=== PATIENT | female | born 1975 | race Caucasian/White ===

== ENCOUNTER → 2023-09-20 11:12 | Outpatient (REF) | payer OTHER, SELFPAY | LOC: HWRAD 11:12 | PROVIDERS: ATTENDING PHYSICIAN Surgery; FAMILY PHYSICIAN Physician Assistant Medical | DX: N20.0 Calculus of kidney (principal) | CPT/HCPCS: 76775 ==

== ENCOUNTER → 2023-10-12 14:26 | Outpatient (REF) | payer OTHER, SELFPAY | LOC: HWWDC 14:26 | PROVIDERS: ATTENDING PHYSICIAN Physician Assistant Medical | DX: Z12.31 Encounter for screening mammogram for malignant neoplasm of breast (principal) | CPT/HCPCS: 77063; 77067 ==

== ENCOUNTER 2024-01-15 16:57 | Emergency (ER) | payer OTHER, SELFPAY ==
[2024-01-15 17:17] VITALS: BP 119/83
--- NOTE | 2024-01-15 17:18 | ED.GENMED ---
ED Provider Triage
<Digna Martinez SCRAP BREAKER - Last Filed: 01/15/24 17:23>
-
Patient seen by provider in Triage?: Seen in Triage
Attestation: A medical screening examination has been initiated by a qualified medical provider. Based on the assessment performed at this time, it has been determined that an emergent medical condition may exist and the patient has been informed
that further medical evaluation and possible additional diagnostic testing may be needed.
HPI: 48 yo female here for 'left side sciatica pain.' Started 2 weeks ago, has been seeing chiropractor with some relief then pain became worse through last night. Took Aleve and Advil this a.m. with no relief. Pain left butt cheek back of thigh,
back of calf to the arch of her foot. Pain is spasms in buttocks, tingling pain down leg. Got Toradol IV in ambulance en route.
GENERAL: Alert , tearful due to back pain
EYE: No visual abnormalities.
NECK: Trachea midline
ENT: No visible abnormalities.
LUNGS: No acute respiratory distress
NEUROLOGICAL: Alert and oriented
SKIN: Skin intact. No visible changes.
MUSCULOSKELETAL: Moving extremities normally.
PSYCH: Normal and appropriate interaction.
This is a medical evaluation conducted in person to initiate diagnostic evaluation and provide initial therapeutics. Please see further documentation by the treating clinician.c
History of Present Illness
<Digna Martinez SCRAP BREAKER - Last Filed: 01/15/24 17:23>
General
Chief Complaint: Back Pain
Time Seen by Provider: 01/15/24 18:10
<Sukumar Maharaj PA-C - Last Filed: 01/15/24 20:33>
General
Source: patient
History of Present Illness
History of Present Illness:
48-year-old female with past medical history of migraines presenting to the emergency department for evaluation of left-sided lower back pain radiating down her left leg that began acutely last night, has had similar pain in the past but today seems
much more severe and now experiencing a tingling sensation into the foot. Patient states that she was doing some gardening yesterday and believes when she bent down to worm picker a plant that is what caused her symptoms. Patient states that she does
have some chronic pains in often received trigger injections along with her Botox medication for her migraines but notes minimal relief with this. Patient denies any fevers or infectious symptoms, bladder or bowel incontinence, saddle anesthesia,
history of IV drug abuse, abnormal weight loss, traumatic injuries or any other concerns. Patient notes that despite having this back pain for many years has not had any recent imaging of her back.
Past History
<Digna Martinez NP - Last Filed: 01/15/24 17:23>
Past History
ED Past Medical History: Other (Migraine headaches, low blood pressure, exercise-induced asthma, kidney stones)
ED Past Surgical History: and Other (Tummy tuck, rhinoplasty, breast augmentation)
Social History
Tobacco: Non-smoker
<Sukumar Maharaj PA-C - Last Filed: 01/15/24 20:33>
Social History
Alcohol: Occasional
Drug: None
Personal:
Living: with family
Review of Systems
<Sukumar Maharaj PA-C - Last Filed: 01/15/24 20:33>
Review of Systems
All Other Systems: ROS reviewed and negative except as documented in HPI and ROS
Phy Exam
<Sukumar Maharaj PA-C - Last Filed: 01/15/24 20:33>
Physical Exam
Physical Exam:
GENERAL: Alert , in no apparent distress but does appear uncomfortable with movements
EYE: clear conjunctiva b/l
NECK: Supple
ENT: o/p clr, mmm.
BACK: Limited range of motion, tenderness to the left sacroiliac region extending down towards the left buttock, negative straight leg raise bilateral, no midline bony tenderness, no rashes
NEUROLOGICAL: Alert and oriented, no focal neuro deficits. Patellar deep tendon reflexes intact and equal bilaterally, sensation grossly intact and equal to light touch bilateral lower extremities, negative straight leg raise bilaterally
SKIN: Warm and dry, skin intact.
MUSCULOSKELETAL: No edema, well perfused. EHL intact bilaterally
PSYCH: Normal and appropriate interaction.
Scores
<Sukumar Maharaj PA-C - Last Filed: 01/15/24 20:33>
Heart Failure Risk
Heart Failure Risk Score: Not Applicable
Heart Score for Chest Pain Patients
STEMI patient?: Not applicable
Withdrawal Assessment of Alcohol
Withdrawal Assessment Completed?: Not applicable
Course
<Digna Martinez NP - Last Filed: 01/15/24 17:23>
Orders/Labs/Results
Orders:
Orders
01/15/24 18:44
Dexamethasone Sod Phosphate [Decadron] 10 mg IV NOW STA
Oxycodone/Acetaminophen [Percocet 5/325] 1 tablet PO NOW STA
CR Lumbar Spine Comp Min 4 Vw* Urgent
Comment:
Reason For Exam: left lower back pain, radiculopathy
Vital Signs
Initial and Last Documented VS:
Initial Vital Signs
Temp Pulse Resp BP Pulse Ox
98.8 F 95 24 119/83 99
01/15/24 17:17 01/15/24 17:17 01/15/24 17:17 01/15/24 17:17 01/15/24 17:17
Last Documented Vital Signs
Temp Pulse Resp BP Pulse Ox
98.0 F 85 16 119/83 98
01/15/24 17:20 01/15/24 17:20 01/15/24 17:20 01/15/24 17:20 01/15/24 17:20
<Sukumar Maharaj PA-C - Last Filed: 01/15/24 20:33>
Orders/Labs/Results
Orders:
Orders
01/15/24 18:44
Dexamethasone Sod Phosphate [Decadron] 10 mg IV NOW STA
Oxycodone/Acetaminophen [Percocet 5/325] 1 tablet PO NOW STA
CR Lumbar Spine Comp Min 4 Vw* Urgent
Comment:
Reason For Exam: left lower back pain, radiculopathy
Vital Signs
Initial and Last Documented VS:
Initial Vital Signs
Temp Pulse Resp BP Pulse Ox
98.8 F 95 24 119/83 99
01/15/24 17:17 01/15/24 17:17 01/15/24 17:17 01/15/24 17:17 01/15/24 17:17
Last Documented Vital Signs
Temp Pulse Resp BP Pulse Ox
98.0 F 85 16 119/83 98
01/15/24 17:20 01/15/24 17:20 01/15/24 17:20 01/15/24 17:20 01/15/24 17:20
<Sukumar Maharaj PA-C - Last Filed: 01/15/24 20:33>
MDM/Problems Addressed
Differential Diagnosis Includes:
Lumbar muscle strain, disc herniation, nerve impingement, I do not have concern for an acute cauda equina nor infectious etiology
MDM/Problems Addressed:
48-year-old female presenting to the emergency department for evaluation of acute on chronic left-sided lower back pain, pain radiating down left leg now which she has not experienced before. Paresthesia to the left foot. Sensation grossly intact
however. Patient without any focal neurologic findings on exam. Will order x-ray. Pain control with Decadron and Percocet here. Patient recently did complete a Medrol Dosepak a few weeks ago when she had as similar exacerbation of her back pain
but not as severe as today's. Patient also sees a chiropractor.
<Sukumar Maharaj PA-C - Last Filed: 01/15/24 20:33>
*Radiology
Radiology exam reviewed: preliminary read by ED provider (Straightening of the natural curve but no fracture)
*Pulse Oximetry
Patient hypoxic: no
*Critical Care Note
Total Time (30-74mins, 75-104mins- exclusive of procedures): Not Applicable
Data Reviewed
Review of Other/Old Records Reveals: Radiology Studies
Source: patient
<Sukumar Maharaj PA-C - Last Filed: 01/15/24 20:33>
Patient Management
Escalation/DeEscalation of care consider admission/obs:
Patient's imaging unremarkable for any acute pathologies. Stable for discharge home. Patient has Valium at home as part of her chronic pain regimen. I advise she not mix this with the Percocet as it can cause respiratory suppression. Patient
expressed understanding. Will restart Medrol Dosepak. Information for orthopedics provided but otherwise stable for discharge home.
ED Attending Note
<Digna Martinez NP - Last Filed: 01/15/24 17:23>
-
Portions of this chart may have been created with voice recognition software.� Occasional wrong word or��sound alike� substitutions may have occurred due to the inherent limitations of voice recognition software.
Discharge Plan
Departure
Patient Disposition: Home (Routine Discharge)
Date of Disposition: 01/15/24
Time of Disposition: 19:56
Patient with high blood pressure during this ER visit?: No
Discharge Problem:
Acute left lumbar radiculopathy
Instructions: Radiculopathy (DC)
Prescriptions:
New
methylprednisolone [Medrol (Yunior)] 4 mg tablets,dose pack
4 mg PO DIRECTED Qty: 21 0RF
oxycodone-acetaminophen [Percocet] 5-325 mg tablet
1 tab PO Q6HPRN PRN (Reason: pain) Qty: 6 0RF
No Action
dextroamphetamine-amphetamine [Adderall] 20 MG tablet
20 mg PO DAILYPRN PRN (Reason: ADHD)
zolpidem 10 MG tablet
10 mg PO HSPRN PRN (Reason: insomnia)
sertraline [Zoloft] 100 MG tablet
150 mg PO DAILY
diazepam [Valium] 10 MG tablet
10 mg PO PRN PRN (Reason: anxiety)
cannabidiol [Epidiolex] 1 UNIT solution
1 unit PO DAILY
Patient Comments:
'I smoke all day'
Primidone
3 tab PO DAILY
Patient Comments:
pt does not know mg
Referrals:
Chayo Hunt PA [Family Provider] -
Yaima Rosa DO [Active] - (Ortho - Please call for appointment)
Interventions
Interventions:
*Risk Screen - Suicide Last Done: 01/15/24 17:20
*General Assessment Last Done: 01/15/24 19:09
*Neglect/Abuse Screening Last Done: 01/15/24 17:20
ED- Fall Risk Assessment Last Done: 01/15/24 19:09
*Nursing Disposition Last Done: 01/15/24 20:15
ED-Musculoskeletal Assessment Last Done: 01/15/24 18:04
Discharge Date and Time
Discharge Date/Time: 01/15/24 20:16
Print Language: TELUGU
[2024-01-15 17:20] VITALS: BP 119/83
[2024-01-15] MEDS: PERCOCET 5/325 1 TABLET PO (19:01)
[2024-01-15] MEDS: DECADRON 10 MG IV (19:02)
== END 2024-01-15 20:16 | disposition home or self-care (01) ==
LOC: EMR 16:57
PROVIDERS: EMERGENCY PHYSICIAN Student in an Organized Health Care Education/Training Program; FAMILY PHYSICIAN Physician Assistant Medical
DX: M54.16 Radiculopathy, lumbar region (principal); G89.29 Other chronic pain
CPT/HCPCS: 96374; 99284; 72110

== ENCOUNTER → 2024-11-19 18:55 | Outpatient (REF) | payer OTHER, SELFPAY | LOC: RAD 18:55 | PROVIDERS: ATTENDING PHYSICIAN Nurse Practitioner; FAMILY PHYSICIAN Family Medicine; OTHER PHYSICIAN Psychiatry & Neurology Neurology | DX: M25.561 Pain in right knee (principal) | CPT/HCPCS: 73560 ==